=== PATIENT | female | born 1940 | race Caucasian/White ===

== ENCOUNTER 2019-04-24 09:59 | Outpatient (CLI) | payer MEDICARE ==
[2019-04-24] MEDS ORDERED: ISOVUE-370 76% 1 ML ONE (11:44)
--- NOTE | 2019-04-24 11:46 | CT ---
CT ABDOMEN AND PELVIS WITH ORAL AND IV CONTRAST: HISTORY: Pancreatic insufficiency. C. diff diarrhea. COMPARISON: 05/07/2016 FINDINGS: The lung bases are clear. A small hiatal hernia is seen. There are calcified granulomas in the liver. The pancreas, adrenal glands and kidneys are normal. No calcified gallstones are seen. No free air, free fluid or lymphadenopathy is noted in the abdomen or pelvis. There are vascular calc ifications without evidence of aneurysmal dilatation of the abdominal aorta. There are degenerative c hanges and scoliosis of the spine. The small bowel loops are not abnormally dilated. Thickening of th e pylorus is again seen. The patient is post hysterectomy. A vaginal pessary is present. IMPRESSION: Stable examination. POS: [facility]
== END 2019-04-24 10:00 | disposition home or self-care (01) ==
LOC: BICCT 09:59
PROVIDERS: ATTEND Physician Assistant Medical
DX: K86.89 Other specified diseases of pancreas (principal); A04.72 Enterocolitis due to Clostridium difficile, not specified as recurrent
CPT/HCPCS: 74177; 82565